=== PATIENT | female | born 1980 | race Caucasian/White ===

== ENCOUNTER 2021-05-08 09:21 | Emergency (ER) | payer OTHER, SELFPAY ==
[2021-05-08 09:26] VITALS: BP 147/92; PULSE 97; RESP 20; TEMP 36.4; O2SAT 100
--- NOTE | 2021-05-08 09:27 | ED.URI ---
HPI - URI/Sore Throat General Chief Complaint: Upper Respiratory Infection Stated Complaint: Possible sinus infection, having bad headaches Time Seen by Provider: 05/08/21 09:34 Source: patient and RN notes reviewed Mode of arrival: ambulatory Limitations: no limitations History of Present Illness HPI Narrative: 41-year-old female with history of asthma presents concern for 7-day history of nasal congestion, sinus pain, frontal headache, postnasal drainage, sneezing. She reports her asthma has been aggravated, she wheezing and has been using her albuterol inhaler twice daily. She denies fever, body aches, chills, sweats. She denies cough, shortness of breath, known sick contacts. MD elicited complaint: nasal congestion Related Data Home Medications Medication Instructions Recorded Confirmed albuterol sulfate INHALATION 05/08/21 benzonatate mg PO 05/08/21 buspirone mg 05/08/21 clonazepam 05/08/21 sertraline mg 05/08/21 Allergies Allergy/AdvReac Type Severity Reaction Status Date / Time Sulfa (Sulfonamide Allergy Unknown Rash Verified 05/08/21 09:26 Antibiotics) Review of Systems Review of Systems: Narrative: CONSTITUTIONAL: Denies malaise, chills, sweats, or fever. EYES: Denies visual changes, redness, or discharge. ENT: Reports rhinorrhea, congestion, sinus pain. Denies otalgia and sore throat. CARDIOVASCULAR: Denies chest pain, palpitations, or edema. RESPIRATORY: Denies cough or dyspnea. GASTROINTESTINAL: Denies abdominal pain, nausea, vomiting, diarrhea SKIN: Denies rash or itching. MUSCULOSKELETAL: Denies myalgia. NEUROLOGIC: Reports headache. All systems reviewed & are unremarkable except as noted in HPI and below PMFSH Comments At time of signature, agree with nursing past medical, surgical, social and family history. There is no relevant family history pertinent to the presenting complaint Exam Narrative: Exam Narrative: GENERAL: Well-appearing, well-nourished, and in no acute distress. HEAD: Normocephalic EYES: PERRLA, conjunctivae clear ENT: Nares clear, turbinates edematous and erythematous, sinus tenderness. Mucous membranes moist. TM pearly gauthier with dull light reflex bilaterally; no tragal tenderness. Oropharynx not erythematous without lesions. Tonsils not enlarged and without exudate, no drooling, no hoarseness, no trismus, uvula midline. NECK: Supple. No lymphadenopathy CHEST: Scattered wheeze, otherwise clear to auscultation, breath sounds equal. No rhonchi, rales, or stridor. No respiratory distress, speaks in full sentences. HEART: Regular rate and rhythm. No murmur heard. SKIN: Warm, dry, no rash. NEURO: Alert and oriented x3. PSYCH: Normal mood and affect Course Course Emergency Course: Patient is aware of diagnosis, understands and agrees to treatment plan. Anticipatory guidance given. Patient agrees to follow-up as directed and is aware of reasons to seek care at the emergency department. Portions of this record may have been created with voice recognition software Vital Signs Vital signs: Reviewed. MDM - URI/Sore Throat MDM Narrative Medical decision making narrative: Differential diagnosis considered: Rai virus, strep pharyngitis, allergic rhinitis, upper respiratory tract infection, sinusitis, rhinosinusitis, nasopharyngitis. viral pharyngitis, otitis media, otitis externa, pneumonia, bronchitis, viral cough syndrome, viral syndrome, and influenza. Exam findings show no acute concerns or changes; patient is non-toxic appearing and is in no distress. Patient is appropriate for outpatient treatment and follow-up. Critical Care Time Critical Care Time Critical Care Time: No Discharge Plan Discharge Clinical Impression: Sinobronchitis Patient Disposition: Home, Self-Care Condition: Stable Instructions: Antibiotic Form, Sinusitis (ED) Additional Instructions: Take medication as directed Nonprescription pain medications, such as acetaminophen (eg, Tylenol)
== END 2021-05-08 09:54 | disposition home or self-care (01) ==
PROVIDERS: Emergency Provider Nurse Practitioner; PCP Family Medicine
DX: J32.9 Chronic sinusitis, unspecified (principal); J40 Bronchitis, not specified as acute or chronic; I10 Essential (primary) hypertension; J45.909 Unspecified asthma, uncomplicated
CPT/HCPCS: 99213; G0463

== ENCOUNTER 2021-12-04 12:46 | Emergency (ER) | payer OTHER, MEDICAID, SELFPAY ==
--- NOTE | 2021-12-04 12:47 | ED.GENADULT ---
HPI - General Adult General Chief complaint: Ear Stated complaint: ear pain Time Seen by Provider: 12/04/21 12:46 Source: patient Mode of arrival: ambulatory Limitations: no limitations History of Present Illness HPI narrative: 41-year-old female patient presents to the [facility] with complaints of bilateral ear pain, congestion, runny nose and sore throat for the past 2 days. Patient is fully vaccinated against COVID. Denies fevers, body aches or chills. Patient denies taking anything for her symptoms. Related Data Home Medications Medication Instructions Recorded Confirmed sertraline mg 05/08/21 Allergies Allergy/AdvReac Type Severity Reaction Status Date / Time Sulfa (Sulfonamide Allergy Unknown Fainting Verified 12/04/21 13:06 Antibiotics) Review of Systems Review of Systems: CONSTITUTIONAL: Denies fever, chills, or sweats. EYES: Denies visual changes, redness, or discharge. ENT: Positive rhinorrhea, congestion, sore throat, and bilateral otalgia. CARDIOVASCULAR: Denies chest pain, palpitations, or edema. RESPIRATORY: Denies cough or dyspnea. GASTROINTESTINAL: Denies abdominal pain, nausea, vomiting, or diarrhea. GENITOURINARY: Denies dysuria or hematuria. SKIN: Denies rash or itching. MUSCULOSKELETAL: Denies back pain, joint pain, or myalgia. NEUROLOGIC: Denies headache, numbness, or weakness. PSYCHIATRIC: Denies anxiety or depression. [facility] Past Medical History Medical History (Updated 12/04/21 @ 13:32 by ARSLAN Dudley) Bipolar disorder Hypertension Migraines Scoliosis Surgical History Surgical History (Updated 12/04/21 @ 12:49 by ARSLAN Dudley) H/O tubal ligation Hx of cholecystectomy Comments At the time of my signature I agree with nursing past medical history, surgical, social, and family history. There is no relevant family history pertinent to the presenting complaint. Exam Narrative: GENERAL: Well-appearing, well-nourished, and in no acute distress. HEAD: Normocephalic, atraumatic. EYES: PERRLA and EOMI. ENT: Nares with erythema and swelling bilaterally, clear rhinorrhea, no epistaxis. Mucous membranes moist. Posterior pharynx with slight erythema but no tonsillar enlargement. No exudates or lesions. Slight cloudiness noted to bilateral TMs on exam but no erythema or evidence of infection. NECK: Supple. No lymphadenopathy CHEST: Clear to auscultation. No respiratory distress. HEART: Regular rate and rhythm. No murmur heard. Normal peripheral pulses. ABDOMEN: Soft, nontender, nondistended, normal active bowel sounds. EXTREMITIES: Normal range of motion. No edema. SKIN: Warm, dry, no rash. NEURO: No focal deficits. Alert and oriented x3. Course Course Level of Care: Express Care Visit Vital Signs Vital signs: Vital Signs Temperature 36.2 C L 12/04/21 12:56 Pulse Rate 99 12/04/21 12:56 Respiratory Rate 14 12/04/21 12:56 Blood Pressure 141/89 H 12/04/21 12:56 Pulse Oximetry 98 12/04/21 12:56 Temperature 36.2 C L 12/04/21 12:56 Pulse Rate 99 12/04/21 12:56 Respiratory Rate 14 12/04/21 12:56 Blood Pressure 141/89 H 12/04/21 12:56 Pulse Oximetry 98 12/04/21 12:56 Vital signs reviewed. The patient has been informed that they may have pre-hypertension or Hypertension based on a BP reading in the department. I recommend that the patient call the primary care provider listed on their discharge instructions or a physician of their choice this week to arrange follow up for further evaluation of possible pre-hypertension or Hypertension Medical Decision Making Differential Diagnosis Differential Diagnosis: Differential diagnosis: Otitis media, otitis externa, perforated TM, infection of the outer ear, foreign body or cerumen impaction, ruptured TM, acute mastoiditis, ligament otitis externa, dehydration, pneumonia, sepsis, dental or intraoral infection, TMJ dysfunction Discussed with patient that I do not see any evidence of in
[2021-12-04 12:56] VITALS: BP 141/89; PULSE 99; RESP 14; TEMP 36.2; O2SAT 98
[2021-12-05 15:55] LABS: SARS-CoV-2 RNA PCR Positive
== END 2021-12-04 13:37 | disposition home or self-care (01) ==
PROVIDERS: Emergency Provider Nurse Practitioner Family
DX: H69.93 Unspecified Eustachian tube disorder, bilateral (principal); B34.9 Viral infection, unspecified; Z20.822 Contact with and (suspected) exposure to COVID-19; I10 Essential (primary) hypertension; M41.9 Scoliosis, unspecified
CPT/HCPCS: 99213; C9803; G0463; U0003; U0005

== ENCOUNTER 2023-03-20 08:33 | Emergency (ER) | payer OTHER, SELFPAY ==
--- NOTE | 2023-03-20 08:37 | ED.URI ---
HPI - URI/Sore Throat General Chief Complaint: Upper Respiratory Infection Stated Complaint: Sore Throat/Ear Pain Time Seen by Provider: 03/20/23 08:38 Source: patient and RN notes reviewed History of Present Illness HPI Narrative: Patient is a 42-year-old female who presents to urgent care with complaints of sore throat and left ear pain for the last 2 days. Patient states she has been taking Tylenol and ibuprofen. Denies any fever, nausea, vomiting or ill exposures. No other acute complaints. No acute distress noted. Patient aware of the plan of care. Some parts of this dictation were generated by voice recognition software and may contain typographical and/or grammatical inaccuracies. Related Data Home Medications Medication Instructions Recorded Confirmed sertraline 100 mg tablet 100 mg PO DAILY 05/08/21 12/04/21 albuterol sulfate 90 mcg/actuation inhalation 03/20/23 aerosol inhaler clonazepam 1 mg tablet mg 03/20/23 clonidine HCl 0.1 mg tablet mg 03/20/23 dicyclomine 10 mg capsule mg 03/20/23 duloxetine 60 mg capsule,delayed mg PO 03/20/23 release ergocalciferol (vitamin D2) 1,250 03/20/23 mcg (50,000 unit) capsule galcanezumab-gnlm 120 mg/mL mg subcut 03/20/23 subcutaneous pen injector (Emgality Pen) hydroxyzine HCl 50 mg tablet mg 03/20/23 lisinopril 10 mg tablet mg 03/20/23 nortriptyline 50 mg capsule mg 03/20/23 pregabalin 150 mg capsule mg 03/20/23 simvastatin 20 mg tablet mg 03/20/23 tramadol 100 mg tablet,extended mg PO 03/20/23 release 24 hr Allergies Allergy/AdvReac Type Severity Reaction Status Date / Time Sulfa (Sulfonamide Allergy Unknown Fainting Verified 03/20/23 08:47 Antibiotics) Review of Systems Review of Systems: CONSTITUTIONAL: Denies fever, chills, or sweats. EYES: Denies visual changes, redness, or discharge. ENT: Denies rhinorrhea, congestion. Reports of sore throat and left otalgia CARDIOVASCULAR: Denies chest pain, palpitations, or edema. RESPIRATORY: Denies cough or dyspnea. GASTROINTESTINAL: Denies abdominal pain, nausea, vomiting, or diarrhea. GENITOURINARY: Denies dysuria or hematuria. SKIN: Denies rash or itching. MUSCULOSKELETAL: Denies back pain, joint pain, or myalgia. NEUROLOGIC: Denies headache, numbness, or weakness. All other systems reviewed are negative, except as documented in HPI. [facility] Past Medical History Medical History (Updated 03/20/23 @ 09:13 by ARSLAN Fernandez) Bipolar disorder Hypertension Migraines Scoliosis Surgical History Surgical History (Updated 12/04/21 @ 12:49 by ARSLAN Dudley) H/O tubal ligation Hx of cholecystectomy Exam Narrative: GENERAL: This is a well-nourished, well-developed patient, in no apparent distress. HEAD: normocephalic, atraumatic. EYES: PERRL. Sclera clear/white. Vision is grossly intact. EARS: External ears normal, auditory canals clear and without drainage, TMs normal without perforation. Hearing grossly intact. NOSE: External nose normal with no obvious nasal discharge, nares without redness, clear rhinorrhea. THROAT: Mucous membranes moist, posterior pharynx clear. Moderate postnasal drainage NECK: Neck supple, non-tender without lymphadenopathy RESPIRATORY: Clear to auscultation. Breath sounds equal bilaterally. No wheezes, rales, or rhonchi. SKIN: warm, intact with no suspicious lesions or rash, good texture and turgor. NEURO: awake, alert, and oriented to person, place and time. There were no obvious focal neurologic abnormalities. EXTREMITIES: No clubbing, cyanosis, or edema. Course Course Level of Care: Express Care Visit Vital Signs Vital signs: Vital Signs Temperature 97.9 F 03/20/23 08:42 Pulse Rate 102 H 03/20/23 08:42 Respiratory Rate 20 03/20/23 08:42 Blood Pressure 102/80 03/20/23 08:42 Pulse Oximetry 99 03/20/23 08:42 Oxygen Delivery Room Air 03/20/23 08:42 Temperature 97.9 F 03/20/23 08:42 Pulse
[2023-03-20 08:42] VITALS: BP 102/80; PULSE 102; RESP 20; TEMP 36.6; O2SAT 99
== END 2023-03-20 09:25 | disposition home or self-care (01) ==
PROVIDERS: Emergency Provider Nurse Practitioner Family
DX: H92.02 Otalgia, left ear (principal); J02.9 Acute pharyngitis, unspecified; I10 Essential (primary) hypertension; M41.9 Scoliosis, unspecified; F31.9 Bipolar disorder, unspecified
CPT/HCPCS: 87081; 87880; 99213; G0463

== ENCOUNTER 2024-02-28 09:31 | Emergency (ER) | payer OTHER, SELFPAY ==
[2024-02-28 09:39] VITALS: BP 154/98; PULSE 122; RESP 18; TEMP 36.4; O2SAT 95
--- NOTE | 2024-02-28 09:47 | ED.GENADULT ---
HPI - General Adult General Chief complaint: Upper Respiratory Infection Stated complaint: Ear/throat Time Seen by Provider: 02/28/24 09:47 Source: patient, RN notes reviewed and old records reviewed Mode of arrival: ambulatory Limitations: no limitations History of Present Illness HPI narrative: 43-year-old female to Express Care with complaint of bilateral ear pressure, worsening a bit, for 1 week. Patient endorses she was seen in emergency department nearly 2 weeks ago and diagnosed with conjunctivitis and left otitis media. Patient was placed on amoxicillin 500mg without improvement. Patient endorses that she has an appointment with her primary care provider on Monday of next week. Patient denies fever, nausea, dizziness, headache. Related Data Home Medications Medication Instructions Recorded Confirmed albuterol sulfate 90 mcg/actuation 90 mcg inhalation QID PRN 03/20/23 02/28/24 aerosol inhaler Shortness Of Breath Or Wheezing clonazepam 1 mg tablet 1 mg PO DAILY PRN Anxiety 03/20/23 02/28/24 clonidine HCl 0.1 mg tablet 0.1 mg PO HS 03/20/23 02/28/24 dicyclomine 10 mg capsule 10 mg PO DAILY 03/20/23 02/28/24 duloxetine 60 mg capsule,delayed 60 mg PO DAILY 03/20/23 02/28/24 release ergocalciferol (vitamin D2) 1,250 1,250 mcg PO [id number] 03/20/23 02/28/24 mcg (50,000 unit) capsule galcanezumab-gnlm 120 mg/mL 120 mg subcut MONTHLY 03/20/23 02/28/24 subcutaneous pen injector (Emgality Pen) lisinopril 10 mg tablet 10 mg PO DAILY 03/20/23 02/28/24 nortriptyline 50 mg capsule 50 mg PO DAILY 03/20/23 02/28/24 pregabalin 150 mg capsule 150 mg PO DAILY 03/20/23 02/28/24 ascabxyyvd-lqjgjwbdwwxxc-kkuypuhc 1 tablet PO DAILY PRN Migraine 02/28/24 02/28/24 50 mg-325 mg-40 mg tablet Headache cyproheptadine 4 mg tablet 4 mg PO BID 02/28/24 02/28/24 metformin 500 mg tablet 500 mg PO BID 02/28/24 02/28/24 simvastatin 40 mg tablet 40 mg PO HS 02/28/24 02/28/24 tramadol 200 mg tablet,extended 200 mg PO DAILY 02/28/24 02/28/24 release 24 hr tramadol 50 mg tablet 50 mg PO DAILY PRN Migraine 02/28/24 02/28/24 Headache Allergies Allergy/AdvReac Type Severity Reaction Status Date / Time Sulfa (Sulfonamide Allergy Unknown Fainting Verified 03/20/23 08:47 Antibiotics) Review of Systems Review of Systems: All systems reviewed & are unremarkable except as noted in HPI and below Constitutional: Constitutional: Reports as per HPI and Denies fever(s) Eyes: Eyes: Reports no additional eye complaints ENT: Reports as per HPI, Denies ear discharge, Reports otalgia ( Bilateral) and Denies facial pain Cardiovascular: Cardiovascular: Reports no additional cardiovascular complaints, Denies chest pain and Denies dyspnea Respiratory: Respiratory: Reports no additional respiratory complaints, Denies cough and Denies dyspnea Musculoskeletal: Musculoskeletal: Reports no additional musculoskeletal complaints Neurologic: Reports system reviewed and no additional complaints, except as documented Psychiatric: Psychiatric: Reports no additional psychiatric complaints PMFSH Past Medical History Medical History Bipolar disorder Hypertension Migraines Scoliosis Surgical History Surgical History H/O tubal ligation Hx of cholecystectomy Comments At the time of my signature, I reviewed and agree with the nursing past medical, surgical, social, and family history. There is no relevant family history pertinent to the patient complaint. Exam Const: General: cooperative, healthy appearing, comfortable, no acute distress, alert and well nourished Nutritional Appearance: well nourished Orientation/consciousness: patient oriented x3 Limitations: no limitations HENMT: Head: normal to inspection Ears: Abnormal EAC present erythema on the left and diffuse, edema on the left and diffuse and EAC tenderness on th
== END 2024-02-28 10:19 | disposition home or self-care (01) ==
PROVIDERS: Emergency Provider Nurse Practitioner Family
DX: H66.93 Otitis media, unspecified, bilateral (principal); H60.91 Unspecified otitis externa, right ear; I10 Essential (primary) hypertension; M41.9 Scoliosis, unspecified
CPT/HCPCS: 99213; G0463